=== PATIENT | female | born 1970 | race Caucasian/White ===

== ENCOUNTER 2024-08-31 12:30 | Emergency (ER) | payer MEDICAID ==
[~2024-08-31] VITALS: Ht 149.9 cm; Wt 81.3 kg
[2024-08-31] MEDS ORDERED: CARB15DR91 RIGHT EAR (13:54)
[2024-08-31] MEDS ORDERED: AMOX-580 PO (13:54)
[2024-08-31 13:58] VITALS: BP 134/86; PULSE 98; RESP 18; TEMP 98.9; O2SAT 98
== END 2024-08-31 14:00 | disposition home or self-care (01) ==
LOC: ER 12:31
DX: H66.91 Otitis media, unspecified, right ear (principal); H61.21 Impacted cerumen, right ear
CPT/HCPCS: 99283